=== PATIENT | female | born 1960 | race Caucasian/White ===

== ENCOUNTER → 2017-03-06 | Outpatient (CLI) | payer BC | LOC: US 02-26 08:30 | DX: R79.89 Other specified abnormal findings of blood chemistry (principal); Z90.49 Acquired absence of other specified parts of digestive tract | CPT/HCPCS: 76705 ==

== ENCOUNTER 2020-11-11 02:17 | Emergency (ER) | payer BC ==
[2020-11-11 03:17] LABS: HEMOGLOBIN 13.5 gm/dl (12.3-15.3); RED BLOOD COUNT 4.55 M/UL (4.00-5.10)
[2020-11-11 03:29] LABS: BUN/CREATININE RATIO 21 (0-10)
[2020-11-12] MEDS ORDERED: ULTRAM50 MG PO (12:01)
== END 2020-11-11 06:54 | disposition home or self-care (01) ==
LOC: ER1 02:17
PROVIDERS: Emergency Medicine
DX: R10.11 Right upper quadrant pain (principal); R07.9 Chest pain, unspecified; I11.9 Hypertensive heart disease without heart failure; Z90.49 Acquired absence of other specified parts of digestive tract
CPT/HCPCS: 71045; 80053; 81001; 82550; 82553; 83690; 84484; 85025; 85379; 85610; 85730; 93005; 96374; 96375; 99285; J1885; J2405

== ENCOUNTER 2020-11-12 08:52 | Emergency (ER) | payer BC ==
[2020-11-12 09:40] LABS: HEMOGLOBIN 14.7 gm/dl (12.3-15.3); RED BLOOD COUNT 4.94 M/UL (4.00-5.10); WHITE BLOOD COUNT 5.6 K/UL (4.5-11.0)
[2020-11-12 10:01] LABS: BUN/CREATININE RATIO 10 (0-10)
[2020-11-12] MEDS ORDERED: ULTRAM50 MG PO (12:01)
== END 2020-11-12 14:03 | disposition home or self-care (01) ==
LOC: ER1 08:52
PROVIDERS: Emergency Medicine
DX: R10.9 Unspecified abdominal pain (principal); Z88.5 Allergy status to narcotic agent
CPT/HCPCS: 76830; 80053; 81001; 85025; 96374; 96375; 99284; J1200; J2270; J2405; Q9967

== ENCOUNTER → 2021-11-06 | Outpatient (CLI) | payer BC ==
[~2021-11-06] MED LIST: ULTRAM50 MG PO
== END ==
LOC: KOH-I 13:19
DX: M25.551 Pain in right hip (principal); M16.11 Unilateral primary osteoarthritis, right hip
CPT/HCPCS: 73502

== ENCOUNTER → 2021-12-19 | Outpatient (CLI) | payer BC | LOC: KOH-I 10:22 | DX: M25.532 Pain in left wrist (principal) | CPT/HCPCS: 73110 ==